=== PATIENT | female | born 1990 | race Caucasian/White ===

== ENCOUNTER 2018-03-05 21:15 | Emergency (ER) | payer OTHER ==
[~2018-03-05] VITALS: Ht 162.6 cm; Wt 56.2 kg
[~2018-03-05 21:15] MED LIST: ALBU6.7H INH; PRED20 PO
[2018-03-05 21:25] VITALS: BP 102/58; PULSE 77; RESP 18; TEMP 98.1; O2SAT 99
[2018-03-05] MEDS ORDERED: LIDOCAINE HCL 1% PF 30 ML VIAL ONE (21:40)
[2018-03-05] MEDS ORDERED: LIDOCAINE HCL 1% 10 ML VIAL INFIL ONE (21:45)
[2018-03-05] MEDS ORDERED: TETANUS/DIPHTHERIA TOXOID ADULT 0.5 ML VIAL IM ONE (21:45)
--- NOTE | 2018-03-05 21:47 | PD ---
HPI Chief Complaint: Laceration/Skin Injury Time Seen by Provider: 21:45 Travel History International Travel<30 days: No Contact w/Intl Traveler<30days: No Traveled to known affect area: No History of Present Illness HPI Patient presents with complaints of laceration to the right lateral thumb and distal pointer finger and middle finger on the left. 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 Occurred approximate 30 minutes prior to arrival. Bleeding is controlled. Tetanus is updated. Denies any decreased range of motion. Pain 3-4 out of 10. Aggravated with manipulation of lacerations. Relieved with rest. Denies any associated chest pain shortness of breath urinary or bowel symptoms. Denies nausea vomiting diarrhea or fever. Denies . She is not on oral control. PFSH Past Medical History Asthma: Yes Cancer: No Cardiovascular Problems: No Diabetes: No Diminished Hearing: No Gastrointestinal Disorders: No Genitourinary: No Hepatitis: Yes (HEP C) Hiatal Hernia: No Musculoskeletal: No Neurologic: No Reproductive: No Respiratory: Yes (ASTHMA) Immunizations Current: Yes Sleep Apnea: No Thyroid Disease: No Tetanus Vaccination: < 5 Years Influenza Vaccination: No ?: Not LMP: 3 WEEKS : 0 Past Surgical History Other Surgery: No Social History Alcohol Use: Yes (OCC) Tobacco Use: No Substance Use: Yes (COCAINE, OPIATES, BENZODIAZEPENES, IV DRUG USESTATES NONE NOW ) Allergies-Medications (Allergen,Severity, Reaction): Coded Allergies: No Known Allergies (Verified Adverse Reaction, Unknown, 03/05/18) Reported Meds & Prescriptions Reported Meds & Active Scripts Active Deltasone (Prednisone) 20 Mg Tab 20 Mg PO BID Proventil Hfa (Albuterol Sulfate) 6.7 Gm Aero 2 Puff INH Q4 NEEDED FOR SHORTNESS OF BREATH Deltasone (Prednisone) 20 Mg Tab 1 Tab PO BID Review of Systems General / Constitutional: No: Fever Eyes: No: Visual changes HENT: No: Headaches Cardiovascular: No: Chest Pain or Discomfort Respiratory: No: Shortness of Breath Gastrointestinal: No: Abdominal Pain Genitourinary: No: Dysuria Musculoskeletal: No: Pain Skin: Positive Other (Laceration), No Rash Neurologic: No: Weakness Psychiatric: No: Depression Endocrine: No: Polydipsia Hematologic/Lymphatic: No: Easy Bruising Physical Exam Narrative GENERAL: Well-nourished, well-developed patient. SKIN: Focused skin assessment warm/dry. HEAD: Normocephalic. EYES: No scleral icterus. No injection or drainage. NECK: Supple, trachea midline. No JVD or lymphadenopathy. Examination of the left pointer finger and middle finger reveals superficial abrasions without significant laceration at the distal aspects Examination of the right thumb reveals a 1 cm laceration on the lateral aspect of the thumb without tendon involvement, good range of motion and capillary refill Data Data Last Documented VS Vital Signs Date Time Temp Pulse Resp B/P (MAP) Pulse Ox O2 Delivery O2 Flow Rate FiO2 03/05/18 21:33 (73) 03/05/18 21:25 98.1 77 18 99 Orders Orders Tetanus/Diphtheria Tox Adult (Tetanus/Di (03/05/18 21:45) Lidocaine 1% Inj (Xylocaine 1% Inj) (03/05/18 21:45) Lidocaine Pf 1% Inj (Xylocaine-Mpf 1% In (03/05/18 21:40) MDM Medical Decision Making Medical Screen Exam Complete: Yes Emergency Medical Condition: Yes Differential Diagnosis Laceration, abrasion, contusion Narrative Course Assessment plan discussed patient at bedside. Procedures Procedure Narrative LACERATION LOCATION: Right thumb LENGTH: 1 cm NUMBER OF STITCHES/MAJO: 2 interrupted REPAIR: The area of the laceration was prepped with Betadine and sterilely draped. The laceration was infiltrated with 1% lidocaine without epinephrine. The wound was copiously irrigated and explored without evidence of foreign body, tendon injury or neurovascular injury. The wound was closed using 4-0 Prolene. This was a single layer repair. A sterile dressing was applied. The patient was advised to keep the dressing clean and dry. Patient tolerated the procedure well. Left pointer and index finger cleaned and dressed in sterile fashion. Diagnosis Primary Impression: Thumb laceration Qualified Codes: S61.011A - Laceration without foreign body of right thumb without damage to nail, initial encounter Patient Instructions: General Instructions Additional Instructions: Motrin or Tylenol for pain, encouraged him to regular soap and water 2 times per day. Suture removal 7-10 days. Return to emerge from with any onset of new symptoms. Med/Other Pt SpecificInfo: Prescription(s) given Scripts Doxycycline (Doxycycline) 40 Mg Cap 40 MG PO DAILY for Infection, #14 CAP 0 Refills Prov: Segun Ye MD 03/05/18 Disposition: 01 DISCHARGE HOME Condition: Good Segun Ye MD Mar 05, 2018 21:47
[2018-03-05] MEDS ORDERED: DOXY1CAP74 PO (22:17)
[2018-03-05] MEDS ORDERED: DOXYCYCLINE HYCLATE 100 MG CAP PO ONE (22:30)
== END 2018-03-05 22:33 | disposition home or self-care (01) ==
LOC: PHEFT 21:15
DX: S61.011A Laceration without foreign body of right thumb without damage to nail, initial encounter (principal); J45.909 Unspecified asthma, uncomplicated; B19.20 Unspecified viral hepatitis C without hepatic coma; W25.XXXA Contact with sharp glass, initial encounter; Y93.G1 Activity, food preparation and clean up; Y92.511 Restaurant or cafe as the place of occurrence of the external cause; Y99.0 Civilian activity done for income or pay
CPT/HCPCS: 12001

== ENCOUNTER 2018-09-06 22:29 | Observation (INO) ==
[2018-09-06] MEDS ORDERED: Mag Sulf 1 gm/100 ml Premix 100 ML IV.SIG ONE (23:20)
--- NOTE | 2018-09-06 23:25 | ED ---
HPI General Chief Complaint: Asthma Stated Complaint: Difficulty Breathing Time Seen by Provider: 09/06/18 23:20 Source: patient Mode of arrival: ambulatory Limitations: no limitations History of Present Illness complaint: Reports "asthma attack", shortness of breath and wheezing Onset (ago): day(s) (1) Severity: severe Context: Denies recent URI, ran out of meds, medication non-compliance, exercise , allergen exposure, pet exposure and smoke exposure Associated symptoms: Reports chest pain; Denies productive cough, dry cough, fever, hemoptysis, leg edema and syncope Asthma History: Reports childhood onset; Denies adult onset, history of frequent attacks and history of prior ED visit Treatments Prior to Arrival: Reports inhaled bronchodilator and other (oral steroid ) Related Data Current Asthma Therapy: inhaled bronchodilator and recent oral steroid Home Medications Medication Instructions Recorded Confirmed albuterol sulfate INHALATION DAILY 09/07/18 prednisone 5 mg PO DAILY 09/07/18 09/07/18 Allergies Allergy/AdvReac Type Severity Reaction Status Date / Time No Known Allergies Unknown Uncoded 03/05/18 21:38 Review of Systems ROS: all other systems reviewed are negative PMFSH Medical History Medical History Asthma (Acute) Hepatitis C (Acute) Surgical History Surgical History H/O hand surgery (Acute) Social History Social History Substance History: No History of Abuse Second Hand Smoke Exposure: No Smoking Status: Former smoker Tobacco Type: Cigarettes How Often Do You Have a Drink Containing Alcohol: 2 to 4 times a month Immunization History Tetanus Immunization: <5 Years Exam Narrative Exam Narrative: GENERAL: Well-nourished, well-developed patient. Presents in moderate respiratory distress. No stridor no hoarseness. SKIN: Focused skin assessment warm/dry. HEAD: Normocephalic. EYES: No scleral icterus. No injection or drainage. NECK: Supple, trachea midline. No JVD or lymphadenopathy. CARDIOVASCULAR: Regular rate and rhythm without murmurs, gallops, or rubs. RESPIRATORY: Breath sounds equal bilaterally diminished breath sounds bilaterally with inspiratory and end expiratory wheeze. No accessory muscle use. GASTROINTESTINAL: Abdomen soft, non-tender, nondistended. MUSCULOSKELETAL: No cyanosis, or edema. BACK: Nontender without obvious deformity. No CVA tenderness. Course Initial Documented Vital Signs Pulse Oximetry 100 09/06/18 23:20 Last Documented Vital Signs Pulse Rate 97 H 09/07/18 01:55 Respiratory Rate 18 09/07/18 01:55 Blood Pressure 115/68 09/07/18 01:35 Pulse Oximetry 95 09/07/18 01:35 Medical Decision Making MDM Narrative Medical decision making narrative: 28-year-old female with marked shortness of breath and tight breath sounds with history of asthma has taken 3 doses of steroids today and multiple updraft treatments without symptom relief. Presents for further evaluation. Does complain of chest pain. No recent injury or fever. No control pill use no long distance travel. Chest x-ray no acute process no pneumothorax Patient identified to have mild leukocytosis otherwise lab values are grossly normal range Patient starting to show evidence of improvement after magnesium and Solu- Medrol and updraft treatments; patient still has some wheezing for air exchange has improved. Patient is agreeable to observation admission. Patient's case discussed with [facility] MD Dr Perez Medical Screen Exam Complete: Yes Emergency Medical Condition: Yes Differential Diagnosis Differential Diagnosis: Dyspnea exacerbation asthma status asthmaticus pneumonia pneumothorax PE Lab Data Result diagrams: 09/06/18 23:55 09/06/18 23:55 POC Results POC Urine Results Negative Lab Results 09/06/18 09/06/18 09/06/18 Range/Units 23:55 23:55 23:55 CBC w Diff Auto diff final WBC 12.7 H (4.0-11.0) th/mm3 RBC 4.90 (4.00-5.30) mil/mm3 Hgb 13.0 (11.6-15.3) gm/dL Hct 40.9 (35.0-46.0) % MCV 83.3 (80.0-100.0) fL MCH 26.6 L (27.0-34.0) pg MCHC 31.9 L (32.0-36.0) % RDW 16.3 (11.6-17.2) % Plt Count 396 (150-450) th/mm3 MPV 8.1 (7.0-11.0) fL Neut % (Auto) 90.1 H (16.0-70.0) % Lymph % (Auto) 5.1 L (9.0-44.0) % [place] % (Auto) 4.2 (0.0-8.0) % Eos % (Auto) 0.3 (0.0-4.0) % Baso % (Auto) 0.3 (0.0-2.0) % Neut # (Auto) 11.6 H (1.8-7.7) th/mm3 Lymph # (Auto) 0.6 L (1.0-4.8) th/mm3 [place] # (Auto) 0.5 (0.0-0.9) th/mm3 Eos # (Auto) 0.0 (0.0-0.4) th/mm3 Baso # (Auto) 0.0 (0.0-0.2) th/mm3 WBC Differential . Differential Comment . D-Dimer Quant (PE/DVT) 0.31 (0.00-0.50) mg/L FEU Sodium 137 (136-145) meq/L Potassium 4.1 (3.5-5.1) meq/L Chloride 105 (98-107) meq/L Carbon Dioxide 22.5 (21.0-32.0) meq/L Anion Gap 10 (5-15) meq/L BUN 14 (7-18) mg/dL Creatinine 0.84 (0.50-1.00) mg/dL Estimated GFR 80 L (>89) mL/min Random Glucose 138 H (74-106) mg/dL Lactic Acid (0.4-2.0) mmol/L Calcium 8.6 (8.5-10.1) mg/dL 18 Range/Units 02:00 CBC w Diff WBC (4.0-11.0) th/mm3 RBC (4.00-5.30) mil/mm3 Hgb (11.6-15.3) gm/dL Hct (35.0-46.0) % MCV (80.0-100.0) fL MCH (27.0-34.0) pg MCHC (32.0-36.0) % RDW (11.6-17.2) % Plt Count (150-450) th/mm3 MPV (7.0-11.0) fL Neut % (Auto) (16.0-70.0) % Lymph % (Auto) (9.0-44.0) % [place] % (Auto) (0.0-8.0) % Eos % (Auto) (0.0-4.0) % Baso % (Auto) (0.0-2.0) % Neut # (Auto) (1.8-7.7) th/mm3 Lymph # (Auto) (1.0-4.8) th/mm3 [place] # (Auto) (0.0-0.9) th/mm3 Eos # (Auto) (0.0-0.4) th/mm3 Baso # (Auto) (0.0-0.2) th/mm3 WBC Differential Differential Comment D-Dimer Quant (PE/DVT) (0.00-0.50) mg/L FEU Sodium (136-145) meq/L Potassium (3.5-5.1) meq/L Chloride (98-107) meq/L Carbon Dioxide (21.0-32.0) meq/L Anion Gap (5-15) meq/L BUN (7-18) mg/dL Creatinine (0.50-1.00) mg/dL Estimated GFR (>89) mL/min Random Glucose (74-106) mg/dL Lactic Acid 1.2 (0.4-2.0) mmol/L Calcium (8.5-10.1) mg/dL Imaging Data Radiologist's impression: Chest X-Ray 09/06/18 23:22 CONCLUSION: 1. No acute cardiopulmonary disease. Discharge Plan Discharge Disposition Patient Disposition: ED Admit(ED Internal Use Only) Discharge Condition Condition: Stable Discharge Order Discharge Orders: ED Use Only Admit Order (Routine); Ordered 09/07/18 Ordered By: Rema Pham Discharge Details Diagnosis: Asthma exacerbation Physicians Team ED Provider: Rema Pham Primary Care Provider: Primary Care [facility] Rxs /Orders / Referrals /Forms Prescriptions: No Action prednisone 5 mg Tablet 5 mg PO DAILY RF: 0 albuterol sulfate inhaler Inhalation DAILY RF: 0 Discharge Interventions Interventions: Vital Signs Last Done: 09/07/18 01:35 Status ED Status: With Doctor
--- NOTE | 2018-09-06 23:47 | XR ---
EXAM DATE: 09/06/2018 11:37 PM EST AGE/SEX: 28 years / Female INDICATIONS: Shortness of breath with chest pain. CLINICAL DATA: This is the patient's initial encounter. Patient reports that signs and symptoms have been present for 1 day and indicates a pain score of 5/10. MEDICAL/SURGICAL HISTORY: Asthma. None. COMPARISON: No prior exams available for comparison. FINDINGS: Frontal views of the chest in inspiration and expiration were performed. The lungs are symmetrically aerated and clear. No evidence of pneumothorax. There is no evidence of mediastinal shift between inspiration and expiration. The cardio-mediastinal contours are unremarkable. Osseous structures are intact. CONCLUSION: 1. No acute cardiopulmonary disease. Electronically signed by: Kenny Molina MD Board Certified Radiologist 09/06/2018 11:46 PM E
[2018-09-07 00:06] LABS: Baso % (Auto) 0.3 % (0.0-2.0); Eos % (Auto) 0.3 % (0.0-4.0); Hematocrit 40.9 % (35.0-46.0); Lymph # (Auto) 0.6 th/mm3 (1.0-4.8); Lymph % (Auto) 5.1 % (9.0-44.0); Mean Corpuscular HGB Conc 31.9 % (32.0-36.0); Mean Corpuscular Hemoglobin 26.6 pg (27.0-34.0); Mean Corpuscular Volume 83.3 fL (80.0-100.0); Mean Platelet Volume 8.1 fL (7.0-11.0); Mono # (Auto) 0.5 th/mm3 (0.0-0.9); Mono % (Auto) 4.2 % (0.0-8.0); Neut # (Auto) 11.6 th/mm3 (1.8-7.7); Neut % (Auto) 90.1 % (16.0-70.0); Platelet Count 396 th/mm3 (150-450); Red Cell Distribution Width 16.3 % (11.6-17.2); White Blood Count 12.7 th/mm3 (4.0-11.0)
[2018-09-07] MEDS ORDERED: MethylPREDNISolone Sod Succinate Inj 125 MG/2 ML Vial IV.PUSH ONE (00:09)
[2018-09-07 00:23] LABS: Potassium 4.1 meq/L (3.5-5.1)
[2018-09-07 00:27] LABS: Calcium 8.6 mg/dL (8.5-10.1)
[2018-09-07 00:28] LABS: Carbon Dioxide 22.5 meq/L (21.0-32.0)
[2018-09-07] MEDS ORDERED: Sod Chloride 0.9% Inj 1,000 ML IV.SIG SCH (01:45)
[2018-09-07] MEDS ORDERED: Acetaminophen 325 MG Tablet PO PRN (02:39)
[2018-09-07] MEDS ORDERED: Bisacodyl 10 MG Supp RECTAL PRN (02:39)
[2018-09-07 04:59] VITALS: O2SAT 96
[2018-09-07] MEDS ORDERED: MethylPREDNISolone Sod Succinate Inj 40 MG/ML Vial IV.PUSH SCH (06:00)
[2018-09-07 08:53] VITALS: RESP 19
[2018-09-07] MEDS ORDERED: Senna/Docusate Sodium 8.6/50 MG Tablet PO SCH (09:00)
[2018-09-07 11:24] VITALS: BP 123/73; PULSE 82; TEMP 98
--- NOTE | 2018-09-07 12:18 | P.HPIM ---
History of Present Illness Primary Care Physician: No Primary Care Physician History of Present Illness: 28-year-old female with a history of self diagnosed asthma diagnosed 2 years ago , using her father's either albuterol or Symbicort daily for the past 2 years, who presents with a 1 day history of wheezing, shortness of breath upon waking up 09/06. Patient denies any changes in medications, did not run out of her father's inhaler. She did take 50 mg of prednisone yesterday without improvement. She currently says she feels much better, and would like to go home. Review of Systems All other systems reviewed negative except as stated in HPI PMFSH - History History Provided By: Patient - Medical History Medical History: Medical History (Last Reviewed 09/07/18 @ 12:15 by Alejandro Strauss MD) Asthma Hepatitis C - Surgical History Surgical History: Surgical History (Last Reviewed 09/07/18 @ 12:15 by Alejandro Strauss MD) H/O hand surgery - Family History Family History: Family History (Last Updated 09/07/18 @ 12:15 by Alejandro Strauss MD) Father Asthma - Social History I have reviewed the patient's Social History: Yes - Tobacco History Second Hand Smoke Exposure: Yes Tobacco Use In Past 30 Days: No Smoking Status: Former smoker Tobacco Type: Cigarettes - Alcohol History How Often Do You Have a Drink Containing Alcohol: Monthly or less - Substance Use History Substance History: Past History - Immunization History Tetanus Immunization: <5 Years Hx Influenza Vaccine This Season: No Medications and Allergies Active Medications: Active Medications Acetaminophen (Tylenol) 650 mg PO Q4H PRN PRN Reason: Temp > 100.4 Al Hydroxide/Mg Hydroxide (Milk Of Magnesia Liq) 30 ml PO Q12H PRN PRN Reason: Mild Constipation Albuterol (Albuterol Neb (Prn)) 2.5 mg NEB Q2HR NEB PRN PRN Reason: sob/wheezing Last Admin: 09/07/18 08:48 Dose: 2.5 mg Bisacodyl (Dulcolax Supp) 10 mg RECTAL DAILY PRN PRN Reason: SEVERE CONSITIPATION Lactulose (Lactulose Liq) 30 ml PO DAILY PRN PRN Reason: SEVERE CONSITIPATION Methylprednisolone Sodium Succinate (Solumedrol Inj) 40 mg IV.PUSH Q8HR GALINA Last Admin: 09/07/18 05:23 Dose: 40 mg Ondansetron HCl (Zofran Inj) 4 mg IV.PUSH Q6H PRN PRN Reason: NAUSEA OR VOMITING Senna/Docusate Sodium (Holly-Colace) 1 tab PO BID [facility] Last Admin: 09/07/18 09:04 Dose: Not Given Sennosides (Senokot) 17.2 mg PO Q12H PRN PRN Reason: Moderate Constipation Sodium Chloride (Ns Flush) 2 ml IV.FLUSH PRN PRN PRN Reason: FLUSH AFTER USING IV ACCESS Sodium Chloride (Ns Flush) 2 ml IV.FLUSH BID [facility] Last Admin: 09/07/18 09:04 Dose: Not Given Sodium Chloride (Ns Flush) 2 ml IV.FLUSH PRN PRN PRN Reason: FLUSH AFTER USING IV ACCESS Allergies Allergy/AdvReac Type Severity Reaction Status Date / Time No Known Allergies Unknown Uncoded 03/05/18 21:38 Exam Vital signs: Vital Signs 09/06/18 23:20 09/06/18 23:28 09/06/18 23:30 Temperature Pulse Rate 110 H 109 H Respiratory Rate 22 20 Blood Pressure 120/74 Pulse Oximetry 100 100 09/06/18 23:42 09/07/18 00:22 09/07/18 01:35 Temperature Pulse Rate 114 H 103 H 103 H Respiratory Rate 22 20 20 Blood Pressure 119/75 120/66 115/68 Pulse Oximetry 100 99 95 09/07/18 01:55 09/07/18 03:27 09/07/18 04:00 Temperature 98.5 F Pulse Rate 97 H 110 H 102 H Respiratory Rate 18 17 18 Blood Pressure 118/63 115/57 L Pulse Oximetry 99 09/07/18 04:21 09/07/18 04:54 09/07/18 08:00 Temperature Pulse Rate Respiratory Rate Blood Pressure 115/57 L Pulse Oximetry 96 96 96 09/07/18 08:48 09/07/18 11:08 Temperature 98.0 F Pulse Rate 94 H 82 Respiratory Rate 19 Blood Pressure 123/73 Pulse Oximetry 96 Intake & Output 09/06/18 09/07/18 09/07/18 18:59 06:59 18:59 Intake Total 1220 / 1220 Balance 1220 / 1220 Weight 60.8 kg Intake: IV 1100 / 1100 Magnesium Sulfate 1 gm/D5W 100 100 / 100 ml Premix 100 ML @ 100 mls/hr IV.SIG ONCE ONE Rx#:[id number] NS Inj 1,000 ML @ 1000 mls/hr 1000 / 1000 IV.SIG BOLUS GALINA Rx#:[id number] Oral 120 / 120 Other: # Voids 1 Weight On Admission 60.8 kg Narrative: GENERAL: Patient sitting up in bed. Appears comfortable. Speaking complete sentences. Alert and oriented x4. SKIN: Warm and dry. HEAD: Atraumatic. Normocephalic. EYES: Pupils equal and round. No scleral icterus. No injection or drainage. ENT: No nasal bleeding or discharge. Mucous membranes pink and moist. NECK: Trachea midline. No JVD. CARDIOVASCULAR: Regular rate and rhythm. RESPIRATORY: No accessory muscle use. Wheezing bilaterally. Breath sounds equal bilaterally. GASTROINTESTINAL: Abdomen soft, non-tender, nondistended. Hepatic and splenic margins not palpable. MUSCULOSKELETAL: Extremities without clubbing, cyanosis, or edema. No obvious deformities. NEUROLOGICAL: Awake and alert. No obvious cranial nerve deficits. Motor grossly within normal limits. Five out of 5 muscle strength in the arms and legs. Normal speech. PSYCHIATRIC: Appropriate mood and affect; insight and judgment normal. Results - Labs CBC & Chem 7: 09/06/18 23:55 09/06/18 23:55 Labs: Short CBC 09/06/18 Range/Units 23:55 WBC 12.7 H (4.0-11.0) th/mm3 Hgb 13.0 (11.6-15.3) gm/dL Hct 40.9 (35.0-46.0) % Plt Count 396 (150-450) th/mm3 [facility] 09/06/18 23:55 Sodium 137 Potassium 4.1 Chloride 105 Carbon Dioxide 22.5 BUN 14 Creatinine 0.84 Calcium 8.6 - Imaging Impressions Chest X-Ray 09/06/18 23:22 CONCLUSION: 1. No acute cardiopulmonary disease. Caprini VTE Risk Assessment Caprini VTE Risk Assessment: No/Low Risk (score <= 1) Caprini Risk Assessment Model: Point Value = 1 Point Value = 2 Point Value = 3 Point Value = 5 Age 41-60 Minor surgery BMI > 25 kg/m2 Swollen legs Varicose veins or History of unexplained or recurrent spontaneous Oral contraceptives or hormone replacement Sepsis (< 1 month) Serious lung disease, including pneumonia (< 1 month) Abnormal pulmonary function Acute myocardial infarction Congestive heart failure (< 1 month) History of inflammatory bowel disease Medical patient at bed rest Age 61-74 Arthroscopic surgery Major open surgery (> 45 min) Laparoscopic surgery (> 45 min) Malignancy Confined to bed (> 72 hours) Immobilizing plaster cast Central venous access Age >= 75 History of VTE Family history of VTE Factor V Leiden Prothrombin 11501P Lupus anticoagulant Anticardiolipin antibodies Elevated serum homocysteine Heparin-induced thrombocytopenia Other congenital or acquired thrombophilia Stroke (< 1 month) Elective arthroplasty Hip, pelvis, or leg fracture Acute spinal cord injury (< 1 month) Prophylaxis Regimen: Total Risk Factor Score Risk Level Prophylaxis Regimen 0-1 Low Early ambulation 2 Moderate Order ONE of the following: *Sequential Compression Device (SCD) *Heparin 5000 units SQ BID 3-4 Higher Order ONE of the following medications: *Heparin 5000 units SQ TID *Enoxaparin/Lovenox 40 mg SQ daily (WT < 150 kg, CrCl > 30 mL/min) *Enoxaparin/Lovenox 30 mg SQ daily (WT < 150 kg, CrCl > 10-29 mL/min) *Enoxaparin/Lovenox 30 mg SQ BID (WT < 150 kg, CrCl > 30 mL/min) AND/OR *Sequential Compression Device (SCD) 5 or more Highest Order ONE of the following medications: *Heparin 5000 units SQ TID (Preferred with Epidurals) *Enoxaparin/Lovenox 40 mg SQ daily (WT < 150 kg, CrCl > 30 mL/min) *Enoxaparin/Lovenox 30 mg SQ daily (WT < 150 kg, CrCl > 10-29 mL/min) *Enoxaparin/Lovenox 30 mg SQ BID (WT < 150 kg, CrCl > 30 mL/min) AND *Sequential Compression Device (SCD) Assessment and Plan - Plan //Acute severe asthma exacerbation of what sounds to be mild persistent asthma. = Much improved on IV steroids, nebs. Prednisone dose at home was too low. I have advised patient she needs to follow-up with primary care provider, apply for Medicaid. -We will discharge home with prescription for albuterol inhaler, prednisone taper. Patient is advised to follow-up with primary care doctor prior to finishing her prednisone taper. Patient conveys understanding //Leukocytosis likely secondary to prednisone which patient started at home prior to admission. Discussed Condition With: Patient, nurse. Discharge Planning: Discharge home in good condition. Patient is to follow with primary care as outpatient. Patient conveys understanding. H&P: Quality - VTE Deep Vein Thrombosis/Pulmonary Embolism Present on Admission: No
[2018-09-07] MEDS ORDERED: predniSONE 20 MG Tablet PO ONE (12:30)
--- NOTE | 2018-09-07 18:29 | ECG ---
Date Performed: 09/06/2018 Time Performed: 22:47:41 PTAGE: 28 years EKG: SINUS TACHYCARDIA POSSIBLE LEFT ATRIAL ENLARGEMENT INCOMPLETE RIGHT BUNDLE BRANCH BLOCK ABN ORMAL RHYTHM ECG PREVIOUS TRACING : 06/11/2010 08.11 Since the previous tracing, no significant change noted DOCTOR: Rainer Romero Interpretating Date/Time 09/07/2018 18:27:53
== END 2018-09-07 14:52 | disposition home or self-care (01) ==
LOC: PHEDA 22:29 → PHED 22:29 → PHEDA 09-07 04:23 → PHICU 09-07 04:28
PROVIDERS: ADMIT Internal Medicine; ATTEND Internal Medicine
DX: J45.31 Mild persistent asthma with (acute) exacerbation; Z82.5 Family history of asthma and other chronic lower respiratory diseases; F17.210 Nicotine dependence, cigarettes, uncomplicated; B19.20 Unspecified viral hepatitis C without hepatic coma; D72.829 Elevated white blood cell count, unspecified
CPT/HCPCS: 71020; 71046; 80048; 83605; 84703; 85025; 85379; 90765; 90766; 90775; 93005; 94640; 94664; 94665; 96361; 96365; 96366; 96375; 96376; 99285; G0378; J2920; J2930; J3475; J7030; J7506; J7512